=== PATIENT | female | born 1965 | race Caucasian/White ===

== ENCOUNTER 2022-03-15 10:09 | Emergency (ER) | payer BC, SELFPAY ==
[2022-03-15 10:22] VITALS: BP 137/90; PULSE 91; RESP 18; TEMP 37.3; O2SAT 99
--- NOTE | 2022-03-15 10:48 | ED.URI ---
HPI - URI/Sore Throat General Chief Complaint: Upper Respiratory Infection Stated Complaint: Fever Source: patient Mode of arrival: ambulatory History of Present Illness HPI Narrative: This is a 56-year-old female who presented to urgent care with complaints of a fever that started on Sunday patient notes that she had a fever 100.7 with chills and body aches ,she took ibuprofen. Patient notes that for the last couple of days her temperature has been remained elevated.. She also complains of having a runny nose and nonproductive cough in lower back pain with right ear pain. Patient notes that her right ear seemed. The patient denies SOB, CP, palpitation, extremity numbness, lightheadedness, dizziness, constipation, diarrhea, chills, or fever. Related Data Allergies Allergy/AdvReac Type Severity Reaction Status Date / Time Corticosteroids AdvReac Severe Swelling Verified 03/15/22 10:41 (Glucocorticoids) of the Eye Review of Systems Review of Systems: A 14 organ system Review of Systems was performed and pertinent positives included in the HPI, otherwise remaining ROS is negative. [facility] Family History Family History (Updated 05/03/12 @ 13:20 by DOCTOR UNKNOWN) Other Family history of allergic disorder Hypertension Social History Social History Alcohol intake: current Exam Narrative: GENERAL: This is a well-nourished, well-developed patient, in no apparent distress. HEAD: normocephalic, atraumatic. EYES: PERRL. Sclera clear/white. Vision is grossly intact. EARS: External ears normal, auditory canals clear and without drainage, TMs with erythema. Hearing grossly intact. NOSE: External nose normal with no obvious nasal discharge, nares without redness, no rhinorrhea. THROAT: Mucous membranes moist, posterior pharynx clear. NECK: Neck supple, non-tender without lymphadenopathy, masses or thyromegaly. CARDIOVASCULAR: Regular rate and rhythm without murmurs, gallops, or rubs. RESPIRATORY: Clear to auscultation. Breath sounds equal bilaterally. No wheezes, rales, or rhonchi. GASTROINTESTINAL: Abdomen soft, non-tender, nondistended. Bowel sounds are active. No hepato-splenomegaly, or palpable masses. No guarding. SKIN: warm, intact with no suspicious lesions or rash, good texture and turgor. NEURO: awake, alert, and oriented to person, place and time. There were no obvious focal neurologic abnormalities. EXTREMITIES: Normal range of motion. No edema. No calf tenderness. Course Course Emergency Course: Patient will discharge home with Augmentin to treat her right otitis media and an antiviral to treat her COVID. Patient instructed to take [id number] cold and flu medication along with Tylenol or ibuprofen for her fever Level of Care: Express Care Visit Vital Signs Vital signs: Vital Signs Temperature 99.1 F 03/15/22 10:22 Pulse Rate 91 03/15/22 10:22 Respiratory Rate 18 03/15/22 10:22 Blood Pressure 137/90 03/15/22 10:22 Pulse Oximetry 99 03/15/22 10:22 Oxygen Delivery Room Air 03/15/22 10:22 Temperature 99.1 F 03/15/22 10:22 Pulse Rate 91 03/15/22 10:22 Respiratory Rate 18 03/15/22 10:22 Blood Pressure 137/90 03/15/22 10:22 Pulse Oximetry 99 03/15/22 10:22 Oxygen Delivery Room Air 03/15/22 10:22 MDM - URI/Sore Throat Differential Diagnosis Differential diagnosis: Likely upper respiratory infection, otitis media, sinusitis, viral infection and influenza Lab Data Labs: Influenza A Screen Negative Reference Range: Negative Influenza B Screen Negative Reference Range: Negative Discharge Plan Discharge Clinical Impression: Otitis media, COVID Patient Disposition: Home, Self-Care Condition: Stable Instructions: Antibiotic Form, Ear Infection (ED), COVID-19 (Coronavirus Disease 2019) (ED) Additional Instru
== END 2022-03-15 10:55 | disposition home or self-care (01) ==
PROVIDERS: Emergency Provider Nurse Practitioner
DX: U07.1 COVID-19 (principal); H66.91 Otitis media, unspecified, right ear
CPT/HCPCS: 87426; 87804; 99213; C9803; G0463